=== PATIENT | male | born 1975 | race Caucasian/White ===

== ENCOUNTER 2020-12-03 16:11 | Inpatient (IN) | payer MEDICAID, SELFPAY ==
[2020-12-03] VITALS (28 sets, daily range): BP systolic 110–142; BP diastolic 66–86; PULSE 84–121; RESP 13–36; TEMP 36.5–37.3; O2SAT 82–98
--- NOTE | 2020-12-03 16:00 | RT.EKG_ITS ---
APPROVED REPORT Exam: Resting ECG Reason for Exam: DT's Patient Location: E HR:106 bpm ECG Measurements Heart Rate 106 AXIS AR 137 P 66 QRSd 80 QRS 61 QT 328 T 67 QTc 437 Conclusion Sinus tachycardia...rate> 99 Ventricular trigeminy...trigeminy string>6 w/ V complexes ST elev, probable normal early repol pattern...ST elevation, age<55. No STEMI. I have reviewed and interpreted ECG and agree with software generated interpretation.
--- NOTE | 2020-12-03 16:20 | W.ED.GENAD ---
Discharge Plan Disposition Patient Disposition: [facility] INPATIENT Condition: Fair Discharge Details Clinical Impression: Alcohol withdrawal Primary Care Provider: [facility] Provider: Radha Contreras Home Meds and New Rx's Prescriptions: No Action ibuprofen [IBU] 800 mg Tablet 800 mg PO TID PRNRF: 0 trazodone 150 mg Tablet 150 mg PO QHS RF: 0 Genvoya [phone] mg Tablet 1 tab PO DAILY RF: 0 testosterone enanthate 100 mg/0.5 mL Auto-Injector 250 mg SUBCUT QWEEK RF: 0 Medical Decision Making 1630 -- 45-year-old male with a history of HIV and chronic alcohol abuse with h/o DTs presents for symptoms of alcohol withdrawal in the last hour. Heart rate 110s. He appears diaphoretic, anxious and shaky. Will give 1 mg Ativan IV. Will check screening labs, start banana bag and give Ativan IV prn. 1745 -- Labs reviewed. Normal white blood cell count. Normal potassium of 4.4. Magnesium low at 1.6. Troponin negative. Alcohol level 112. Patient reassessed and he feels better but still somewhat shaky. Heart rate 110s. Will admit for alcohol withdrawal. Case discussed with hospitalist who accepts patient for admission. Medical Records Medical records reviewed: Yes I reviewed the patient's medical records. Lab Data Lab results reviewed: Yes I reviewed the patient's lab results. Labs: Laboratory Tests Range/Units 12/03/20 12/03/20 12/03/20 16:20 16:20 16:20 WBC (4.4-10.8) 10^3/uL 7.41 RBC (4.36-5.78) 10^6/uL 4.85 Hgb (13.5-17.5) g/dL 16.3 Hct (40.0-50.0) % 46.1 MCV (80-95) fL 95.1 H MCH (27.0-33.0) pg 33.6 H MCHC (32.0-36.0) % 35.4 RDW (11.8-14.1) % 14.6 H Plt Count (130-400) 10^3/uL 133 MPV (8.0-11.0) fL 10.2 Immature Gran % 0.3 Neutrophils % 65.3 Lymphocytes % 26.2 Monocytes % 6.2 Eosinophils % 1.6 Basophils % 0.4 Nucleated RBC % % 0 Absolute Neutrophils (1.2-6.7) 10^3/uL 4.84 Absolute Lymphocytes (1.2-3.4) 10^3/uL 1.94 Absolute Monocytes (0.1-0.8) 10^3/uL 0.46 Absolute Eosinophils (0.0-0.7) 10^3/uL 0.12 Absolute Basophils (0.0-0.2) 10^3/uL 0.03 PT (9.3-11.0) sec 10.1 INR (0.9-1.1) 1.0 APTT (21.0-27.5) sec 23.2 Sodium (136-145) mmol/L 142 Potassium (3.5-5.1) mmol/L 4.4 Chloride (98-107) mmol/L 103 Carbon Dioxide (21.0-32.0) mmol/L 25.2 Anion Gap (3-11) mmol/L 13.8 H BUN (7-18) mg/dL 15 Creatinine (0.70-1.30) mg/dL 1.0 Estimated GFR/1.73 m2 (mL/min/1.73m2) >= 60.00 Glucose (74-106) mg/dL 75 Calcium (8.5-10.1) mg/dL 8.9 Magnesium (1.8-2.4) mg/dL 1.6 L Total Bilirubin (0.2-1.0) mg/dL 0.8 AST (15-37) U/L 57 H ALT (16-63) U/L 39 Alkaline Phosphatase (46-116) U/L 79 Troponin I (<0.06) ng/mL < 0.05 Total Protein (6.4-8.2) g/dL 8.4 H Albumin (3.4-5.0) g/dL 4.2 Ethyl Alcohol (<3) mg/dL 112.7 COVID-19 Source Range/Units 12/03/ 18:30 WBC (4.4-10.8) 10^3/uL RBC (4.36-5.78) 10^6/uL Hgb (13.5-17.5) g/dL Hct (40.0-50.0) % MCV (80-95) fL MCH (27.0-33.0) pg MCHC (32.0-36.0) % RDW (11.8-14.1) % Plt Count (130-400) 10^3/uL MPV (8.0-11.0) fL Immature Gran % Neutrophils % Lymphocytes % Monocytes % Eosinophils % Basophils % Nucleated RBC % % Absolute Neutrophils (1.2-6.7) 10^3/uL Absolute Lymphocytes (1.2-3.4) 10^3/uL Absolute Monocytes (0.1-0.8) 10^3/uL Absolute Eosinophils (0.0-0.7) 10^3/uL Absolute Basophils (0.0-0.2) 10^3/uL PT (9.3-11.0) sec INR (0.9-1.1) APTT (21.0-27.5) sec Sodium (136-145) mmol/L Potassium (3.5-5.1) mmol/L Chloride (98-107) mmol/L Carbon Dioxide (21.0-32.0) mmol/L Anion Gap (3-11) mmol/L BUN (7-18) mg/dL Creatinine (0.70-1.30) mg/dL Estimated GFR/1.73 m2 (mL/min/1.73m2) Glucose (74-106) mg/dL Calcium (8.5-10.1) mg/dL Magnesium (1.8-2.4) mg/dL Total Bilirubin (0.2-1.0) mg/dL AST (15-37) U/L ALT (16-63) U/L Alkaline Phosphatase (46-116) U/L Troponin I (<0.06) ng/mL Total Protein (6.4-8.2) g/dL Albumin (3.4-5.0) g/dL Ethyl Alcohol (<3) mg/dL COVID-19 Source Nasal/nares ECG Data Attestation: I personally reviewed and interpreted this ECG (s) as follows: Interpretation: rate of 106, sinus, PVCs. Potentially early repol in V2-V3. No obvious STEMI. HI 137. QRS 61. QTc 430 HPI General Mode of arrival: ambulatory. Date/Time Provider Initiated Documentation: 12/03/20 16:12. Limitations to Documentation: no limitations. Information obtained by: patient. HPI Narrative: Patient is a 45-year-old male with a history of HIV and chronic alcohol abuse who presents for symptoms of alcohol withdrawal in the last hour. Patient states he was scheduled to go to a detox facility today in [place] but was picked up by the [place] [facility] for an unrelated charge. Patient states he was not arrested but while he was being held at the correctional facility with repeat breathalyzer tests to ensure that his alcohol level goes down to 0, he began to feel symptoms of withdrawal. He states he feels shaky and jittery. He expressed concern to the correctional facility staff as he has had a history of alcohol withdrawal with seizures in the past. He states he drinks 3 large bottles of wine and 4-5 jaime's hard lemonade daily. He states his last drink was 2 AM last night. He denies any drug use. Related Data Home Medications Medication Instructions Recorded Confirmed sqjwgby-ijj-okqrf-tenof alafen 1 tab PO DAILY 12/03/20 12/03/20 [Genvoya] ibuprofen [IBU] 800 mg PO TID PRN 12/03/20 12/03/20 testosterone enanthate 250 mg SUBCUT QWEEK 12/03/20 12/03/20 trazodone 150 mg PO QHS 12/03/20 12/03/20 Allergies Allergy/AdvReac Type Severity Reaction Status Date / Time bee venom protein (honey bee) Allergy Severe Anaphylaxis Unverified 12/03/20 16:16 shellfish derived Allergy Severe Anaphylaxis Unverified 12/03/20 16:16 erythromycin base Allergy fever/vomit Unverified 12/03/20 16:16 ing Review of Systems All systems reviewed & are unremarkable except as noted in HPI and below Constitutional Constitutional: Reports as per HPI, Denies chills, Denies fever(s) and Reports other (shaky and jittery feeling like I'm detoxing) Eyes Eyes: Denies blurry vision ENT Ears, Nose, Mouth, and Throat: Denies dizziness, Denies sore throat and Denies throat swelling Cardiovascular Cardiovascular: Denies chest pain and Denies dyspnea Respiratory Respiratory: Denies cough and Denies dyspnea Gastrointestinal Gastrointestinal: Denies abdominal pain, Denies diarrhea and Denies vomiting Genitourinary Genitourinary: Denies hematuria and Denies dysuria Musculoskeletal Musculoskeletal: Denies back pain and Denies numbness Integumentary/Breasts Skin/Breast: Denies lesions and Denies rash Neurologic Neurologic: Denies dizziness, Denies localized weakness and Denies numbness Allergic/Immunologic Allergic/Immunologic: Denies throat swelling [facility] Medical History Alcohol abuse Alcohol withdrawal syndrome with complication h/o DTs HIV (human immunodeficiency virus infection) Surgical History History of appendectomy Hx of bilateral hip replacements Social History Smoking/Tobacco Use Status: Current every day Smoking risk assessment performed?: Yes Alcohol Intake: current Alcohol Intake frequency: 3 or more drinks per day Alcohol type: wine and hard liquor Drug use: Never Details: drinks 2-3 magnums of wine and 5 bottles of mikes hard lemonade daily Exam Const General: cooperative, no acute distress and diaphoretic Orientation: alert, awake and oriented x3 HENMT Head: normal to inspection Face and sinus: normal facial exam Eyes General: appearance normal, both eyes and all related structures Pupils: PERRL EOM: EOM intact bilaterally Neck Neck: normal visual inspection and No submandibular swelling Lymphatic: no lymphadenopathy noted Chest Chest: normal inspection of the chest and no tenderness Resp Effort & Inspection: normal respiratory effort and able to speak in complete sentences Auscultation: clear to auscultation bilaterally Cardio Rate: tachycardic Rhythm: regular rhythm GI Inspection: normal to inspection Palpation: soft, not firm, not rigid and nontender Auscultation: normal bowel sounds Skin General skin exam: no rashes or lesions noted Neuro General: patient alert, patient awake, patient oriented x3, moves all extremities, no meningeal signs and no focal motor deficits Cognition: normal cognition Speech: speech normal Motor: muscle tone normal throughout Sensory Exam: no sensory deficits noted Extrem General: normal to inspection, full ROM, capillary refill normal, no calf tenderness bilaterally and no edema Psych Appearance: grossly normal Mental Status: mental status grossly normal Speech and Movement: speech and movement normal Affect: normal affect
[2020-12-03] MEDS: Normal Saline 1,000 ML 1000 ML IV (16:30)
[2020-12-03] MEDS: LORazepam 2 MG/ML VIAL (16:31)
[2020-12-03] MEDS: LORazepam 2 MG/ML VIAL 1 MG IVP (16:38)
[2020-12-03 16:52] LABS: Abs Immature Grans 0.02 10^3/uL (0.0-0.06); Absolute Basophil Count 0.03 10^3/uL (0.0-0.2); Absolute Eosinophil Count 0.12 10^3/uL (0.0-0.7); Absolute Lymphocyte Count 1.94 10^3/uL (1.2-3.4); Absolute Monocyte Count 0.46 10^3/uL (0.1-0.8); Absolute Neutrophil Count 4.84 10^3/uL (1.2-6.7); Basophils % 0.4; Eosinophils % 1.6; HCT 46.1 % (40.0-50.0); HGB 16.3 g/dL (13.5-17.5); Immature Grans % 0.3; Lymphocytes % 26.2; MCH 33.6 pg (27.0-33.0); MCHC 35.4 % (32.0-36.0); MCV 95.1 fL (80-95); MPV 10.2 fL (8.0-11.0); Monocytes % 6.2; Neutrophils % 65.3; Nucleated RBC 0 %; Platelet Count 133 10^3/uL (130-400); RBC 4.85 10^6/uL (4.36-5.78); RDW 14.6 % (11.8-14.1); RDW-SD 50.4 fL; WBC 7.41 10^3/uL (4.4-10.8)
[2020-12-03] MEDS: Folic Acid 50 MG/10 ML VIAL (17:04)
[2020-12-03 17:07] LABS: PTT Activated 23.2 sec (21.0-27.5); Prothrombin Time 10.1 sec (9.3-11.0)
[2020-12-03] MEDS: MAGNESIUM SULFATE 8.12 MEQ, MULTIVITAMIN 10 ML, THIAMINE 100 MG, FOLIC ACID 1 MG in Nor... 168.867 MG IV (17:08)
[2020-12-03] MEDS: Thiamine 200 MG/2 ML VIAL (17:09)
[2020-12-03 17:11] LABS: ALT 39 U/L (16-63); AST 57 U/L (15-37); Albumin 4.2 g/dL (3.4-5.0); Alkaline Phosphatase 79 U/L (46-116); Anion Gap 13.8 mmol/L (3-11); BUN 15 mg/dL (7-18); Bilirubin, Total 0.8 mg/dL (0.2-1.0); CO2 25.2 mmol/L (21.0-32.0); Calcium 8.9 mg/dL (8.5-10.1); Chloride 103 mmol/L (98-107); ETHANOL BLOOD 112.7 mg/dL (<3); Glucose 75 mg/dL (74-106); Magnesium 1.6 mg/dL (1.8-2.4); Potassium 4.4 mmol/L (3.5-5.1); Sodium 142 mmol/L (136-145); Total Protein 8.4 g/dL (6.4-8.2); Troponin I < 0.05 ng/mL (<0.06)
--- NOTE | 2020-12-03 18:04 | HPE_ITS ---
Date of service: 12/03/20 Time of Service: 18:05 Assessment and Plan Assessment and plan (1) Alcohol withdrawal: Status: Acute Assessment and plan: Early alcoholn withdrawal, responding well to benzos. Will place on scheduled benzos along with CIWA protocol. Will also give single dose beta luis. Usual meds as is otherwise except will make the Trazadone hs prn as may not need with benzos on board. History of Present Illness History of Present Illness Chief Complaint: alcohol withdrawal Narrative: 45 male HIV+, h/o alcohol abuse, h/o full spectrum of withdrawal, including tremors, seizures and prosper DTs. Last drink approx 16 hour [employer]. Was picked up earlier today by police as incapacitated person, housed in group home. While there began experiencing tremors and was sent here for further eval. In ER patient was felt o be exhibiting signs of withdrawal, with tremors and hyperdynamic state. Lab s of note for Mag 1.6, AST 57, EtOH 112. Given banana bag and Ativan 3 mg IV in divided doses. States he feels much better. Due to h/o serious w/d issues he is admitted for further management. Review of Systems All systems reviewed & are unremarkable except as noted in HPI and below PFSH Medical History Alcohol abuse Alcohol withdrawal syndrome with complication h/o DTs HIV (human immunodeficiency virus infection) Surgical History History of appendectomy Hx of bilateral hip replacements Social History Smoking/Tobacco Use Status: Current every day Smoking risk assessment performed?: Yes Alcohol Intake: current Alcohol Intake frequency: 3 or more drinks per day Alcohol type: wine and hard liquor Drug use: Never Details: drinks 2-3 magnums of wine and 5 bottles of mikes hard cider daily Meds Allergies and Home Medications Allergies Allergy/AdvReac Type Severity Reaction Status Date / Time bee venom protein (honey bee) Allergy Severe Anaphylaxis Unverified 12/03/20 16:16 shellfish derived Allergy Severe Anaphylaxis Unverified 12/03/20 16:16 erythromycin base Allergy fever/vomit Unverified 12/03/20 16:16 ing Home Medications Medication Instructions Recorded Confirmed Type fzobwax-aea-fzujy-tenof alafen 1 tab PO DAILY 12/03/20 12/03/20 History [Genvoya] ibuprofen [IBU] 800 mg PO TID PRN 12/03/20 12/03/20 History testosterone enanthate 250 mg SUBCUT QWEEK 12/03/20 12/03/20 History trazodone 150 mg PO QHS 12/03/20 12/03/20 History Exam Narrative Exam Narrative: 127/81, 108, 36.5, 23, 96% RA. NAD, eating [employer]. HEENT atraumatic, anicteric; neck supple; lungs clear, heart tachy/regular; abdomen soft and NT; extremities w/o edema; neuro mild resting tremor, Ox3, lucid, nonfocal Results Labs Result diagrams: 12/03/20 16:20 12/03/20 16:20 Labs: Laboratory Results - last 24 hr 12/03/20 12/03/20 12/03/20 16:20 16:20 16:20 WBC 7.41 RBC 4.85 Hgb 16.3 Hct 46.1 MCV 95.1 H MCH 33.6 H MCHC 35.4 RDW 14.6 H Plt Count 133 MPV 10.2 Immature Gran % 0.3 Neutrophils % 65.3 Lymphocytes % 26.2 Monocytes % 6.2 Eosinophils % 1.6 Basophils % 0.4 Nucleated RBC % 0 Absolute Neutrophils 4.84 Absolute Lymphocytes 1.94 Absolute Monocytes 0.46 Absolute Eosinophils 0.12 Absolute Basophils 0.03 PT 10.1 INR 1.0 APTT 23.2 Sodium 142 Potassium 4.4 Chloride 103 Carbon Dioxide 25.2 Anion Gap 13.8 H BUN 15 Creatinine 1.0 Estimated GFR/1.73 m2 >= 60.00 Glucose 75 Calcium 8.9 Magnesium 1.6 L Total Bilirubin 0.8 AST 57 H ALT 39 Alkaline Phosphatase 79 Troponin I < 0.05 Total Protein 8.4 H Albumin 4.2 Ethyl Alcohol 112.7 Last Vital Signs Temp 36.5 C 12/03/20 16:19 Pulse 108 H 12/03/20 17:46 Resp 23 12/03/20 17:46 BP 127/81 12/03/20 17:46 Pulse Ox 96 12/03/20 17:46 COVID-19 Screening Have you, or household traveled for leisure in last 14 days?: No Had IN PERSON contact w/suspected or confirmed C-19 person: No
[2020-12-03 18:50] LABS: Source Nasal/Nares
[2020-12-03] MEDS: chlordiazePOXIDE 25 MG CAP PO (20:09)
[2020-12-03] MEDS: LORazepam 1 MG TAB PO/SL ×2 (20:09→22:59)
[2020-12-03] MEDS: Metoprolol 25 MG TAB PO (20:10)
[2020-12-03 21:50] LABS: COVID-19 PCR Negative (Negative)
--- NOTE | 2020-12-03 22:49 | NUR.NOTE ---
Patient disconnect his own IV and left it into a cup on his side table.
[2020-12-03] MEDS: traZODone 50 MG TAB 150 MG PO (22:58)
[2020-12-04] VITALS (39 sets, daily range): BP systolic 105–135; BP diastolic 52–102; PULSE 51–107; RESP 10–25; TEMP 36; O2SAT 95–99
[2020-12-04] MEDS: diphenhydrAMINE 25 MG CAP 50 MG PO ×2 (01:30→21:41)
[2020-12-04] MEDS: chlordiazePOXIDE 25 MG CAP PO ×2 (01:31→08:28)
[2020-12-04] MEDS: LORazepam 1 MG TAB PO/SL ×2 (01:31→10:00)
[2020-12-04] MEDS: THIAMINE 100 MG in Normal Saline 100 ML 200 MG IVPB (11:59)
[2020-12-04] MEDS: PHENobarbital 130 MG/ML VIAL IVP ×3 (13:00→21:41)
--- NOTE | 2020-12-04 16:00 | W.PM.PROGNOT ---
Date of Service Date of service: 12/04/20 Time of Service: 16:00 Assessment and Plan Assessment and plan (1) Alcohol withdrawal: Status: Acute Assessment and plan: with h/o EtOH w/d seizures. Transitioned to phenobarbital. Continue to monitor in the ICU. D/c librium/ativan. Continue thiamine/MVI/folate (2) HIV (human immunodeficiency virus infection): Status: Chronic Assessment and plan: Hold HAART - the patient is on vacation from it at this time and it would interract with phenobarbital. (3) Hypomagnesemia: Status: Acute Assessment and plan: Repleted. Recheck in am (4) Macrocytosis: Status: Acute Assessment and plan: Check B12/folate levels (5) DVT prophylaxis: Status: Acute Assessment and plan: lovenox sc (6) Discharge planning issues: Status: Acute Assessment and plan: Full code Transferred to the ICU Total Critical Care Time 40 minutes Subjective Subjective Interval history since last seen: Was noted to be hallucinating this morning with CIWA scores of 19. For this, he was transferred to the ICU. Since he has been on vacation from his HAART x 1 week, he was initiated on phenobarbital and now his sx seem more controlled. He does have a h/o EtOH withdrawal seizures. He was seen twice today. This morning, he was endorsing feeling anxious, tremulous, and having hallucinations. He was surprised to find out that alcohol withdrawal can be that serious. This afternoon, he was seen while talking on the phone, not tremulous, mildly anxious, but appropriate and coherent. His hallucinations have stopped. Exam Narrative Exam Narrative: General: Pleasant middle-aged male, who was tremulous and anxious this morning and is significantly more comfortable this afternoon HEENT: EOMI, MMM Heart: RRR - NSR on monitor Lungs: nonlabored breathing Abdomen: soft, nondistended Extremities:no edema Objective Last Vital Signs Temp 36.0 C L 12/04/20 14:29 Pulse 75 12/04/20 07:40 Resp 19 12/04/20 14:29 BP 111/64 12/04/20 14:29 Pulse Ox 97 12/04/20 14:29 Laboratory Results - last 24 hr 12/03/20 12/03/20 12/03/20 16:20 16:20 16:20 WBC 7.41 RBC 4.85 Hgb 16.3 Hct 46.1 MCV 95.1 H MCH 33.6 H MCHC 35.4 RDW 14.6 H Plt Count 133 MPV 10.2 Immature Gran % 0.3 Neutrophils % 65.3 Lymphocytes % 26.2 Monocytes % 6.2 Eosinophils % 1.6 Basophils % 0.4 Nucleated RBC % 0 Absolute Neutrophils 4.84 Absolute Lymphocytes 1.94 Absolute Monocytes 0.46 Absolute Eosinophils 0.12 Absolute Basophils 0.03 PT 10.1 INR 1.0 APTT 23.2 Sodium 142 Potassium 4.4 Chloride 103 Carbon Dioxide 25.2 Anion Gap 13.8 H BUN 15 Creatinine 1.0 Estimated GFR/1.73 m2 >= 60.00 Glucose 75 Calcium 8.9 Magnesium 1.6 L Total Bilirubin 0.8 AST 57 H ALT 39 Alkaline Phosphatase 79 Troponin I < 0.05 Total Protein 8.4 H Albumin 4.2 Ethyl Alcohol 112.7 COVID-19 Source SARS-CoV-2 (PCR) 12/03/20 18:30 WBC RBC Hgb Hct MCV MCH MCHC RDW Plt Count MPV Immature Gran % Neutrophils % Lymphocytes % Monocytes % Eosinophils % Basophils % Nucleated RBC % Absolute Neutrophils Absolute Lymphocytes Absolute Monocytes Absolute Eosinophils Absolute Basophils PT INR APTT Sodium Potassium Chloride Carbon Dioxide Anion Gap BUN Creatinine Estimated GFR/1.73 m2 Glucose Calcium Magnesium Total Bilirubin AST ALT Alkaline Phosphatase Troponin I Total Protein Albumin Ethyl Alcohol COVID-19 Source Nasal/nares SARS-CoV-2 (PCR) Negative
--- NOTE | 2020-12-04 16:33 | INITIAL_ITS ---
- If Service Date Differs Date of service: 12/04/20 Time of Service: 16:33 Care Management Initial Assess REASON FOR HOSPITALIZATION:: ETOH withdrawal. PAST MEDICAL HISTORY/PAST SURGICAL HISTORY:: Medical History: Alcohol abuse, Alcohol withdrawal syndrome with complication - h/o DTs, and HIV (human immunodeficiency virus infection). Surgical History: History of appendectomy and Hx of bilateral hip replacements. PREVIOUS FUNCTIONAL STATUS/SOCIAL/FAMILY SUPPORTS:: Dustin, who prefers to be called Edmond, is a 45 year old male who resides in [place] with his partner of 7 years. 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 Edmond is originally from [place], [place], where the couple have a second home. Edmond is independent at baseline. CURRENT FUNCTIONAL STATUS:: Edmond is sitting up in bed when CM comes to meet with him. He is pleasant and easily engages in conversation. He shares that he has struggled with alcohol for many years. He has had several periods of sobriety but states that Covid made it difficult to remain sober. CM will continue to follow. ADVANCE DIRECTIVES:: None on file. Has patient been provided with info about the portal/API?: No Did the patient sign up for the portal?: No CODE STATUS:: Full Code INSURANCE COVERAGE / FINANCIAL ISSUES:: Medicaid. CURRENT HOME/COMMUNITY SERVICES/EQUIPMENT:: Has a substance abuse counselor and dramatic coach through [facility]. PRIMARY CARE PHYSICIAN:: None locally. POTENTIAL DISCHARGE NEEDS:: Rehab and appointment with his substance abuse counselor and dramatic coach. PATIENT/FAMILY EDUCATION NEEDS:: Discharge instructions and follow up plan of care, including [facility] [employer]. ANTICIPATED BARRIERS TO DISCHARGE:: None. TRANSPORTATION:: Via [facility] coordinated by CM. PLAN:: Anticipate Edmond will be discharged with no new services when medically cleared by provider. He will follow up with his PCP, community providers, and discharge plan of care as directed. Transportation home will be provided by [facility], coordinated by CM when ready. CM will continue to follow.
[2020-12-04] MEDS: Normal Saline 1,000 ML 125 ML IV (17:40)
[2020-12-04] MEDS: Enoxaparin 40 MG/0.4 ML SYR SC (17:40)
[2020-12-04] MEDS: traZODone 50 MG TAB 150 MG PO (21:41)
[2020-12-05] VITALS (40 sets, daily range): BP systolic 54–122; BP diastolic 21–86; PULSE 53–134; RESP 10–22; TEMP 36.2–36.6; O2SAT 96–98
[2020-12-05] MEDS: Normal Saline 1,000 ML 125 ML IV ×3 (00:33→22:12)
[2020-12-05] MEDS: PHENobarbital 130 MG/ML VIAL IVP ×10 (04:24→23:58)
[2020-12-05] MEDS: diphenhydrAMINE 25 MG CAP 50 MG PO ×3 (04:24→23:58)
[2020-12-05 06:56] LABS: Abs Immature Grans 0.01 10^3/uL (0.0-0.06); Absolute Basophil Count 0.04 10^3/uL (0.0-0.2); Absolute Eosinophil Count 0.24 10^3/uL (0.0-0.7); Absolute Lymphocyte Count 1.98 10^3/uL (1.2-3.4); Absolute Monocyte Count 0.58 10^3/uL (0.1-0.8); Absolute Neutrophil Count 2.02 10^3/uL (1.2-6.7); Basophils % 0.8; Eosinophils % 4.9; HCT 39.2 % (40.0-50.0); HGB 13.7 g/dL (13.5-17.5); Immature Grans % 0.2; Lymphocytes % 40.7; MCH 33.2 pg (27.0-33.0); MCHC 34.9 % (32.0-36.0); MCV 94.9 fL (80-95); Monocytes % 11.9; Neutrophils % 41.5; Nucleated RBC 0 %; Platelet Count 101 10^3/uL (130-400); RBC 4.13 10^6/uL (4.36-5.78); RDW 13.5 % (11.8-14.1); RDW-SD 47.6 fL; WBC 4.87 10^3/uL (4.4-10.8)
[2020-12-05 07:39] LABS: Anion Gap 10.8 mmol/L (3-11); BUN 10 mg/dL (7-18); CO2 24.2 mmol/L (21.0-32.0); CREATININE 0.8 mg/dL (0.70-1.30); Chloride 102 mmol/L (98-107); Folate 9.8 ng/mL (8.6-20.0); Glucose 100 mg/dL (74-106); Magnesium 1.4 mg/dL (1.8-2.4); Potassium 3.7 mmol/L (3.5-5.1); Sodium 137 mmol/L (136-145); Vitamin B12 395 pg/mL (193-986)
--- NOTE | 2020-12-05 08:20 | W.PM.PROGNOT ---
Date of Service Date of service: 12/05/20 Time of Service: 12:40 Assessment and Plan Assessment and plan (1) Alcohol withdrawal: Status: Acute Assessment and plan: with h/o EtOH w/d seizures. Continue phenobarbital. Target RASS -1. Continue to monitor in the ICU. Continue thiamine/MVI/folate (2) HIV (human immunodeficiency virus infection): Status: Chronic Assessment and plan: Hold HAART - the patient is on vacation from it at this time and it would interract with phenobarbital. (3) Hypomagnesemia: Status: Acute Assessment and plan: Repleted. Recheck in am (4) Macrocytosis: Status: Acute Assessment and plan: Does have evidence of B12 deficiency - replete. (5) DVT prophylaxis: Status: Acute Assessment and plan: lovenox sc (6) Discharge planning issues: Status: Acute Assessment and plan: Full code Keep in ICU. Total Critical Care Time 40 minutes Subjective Subjective Interval history since last seen: CIWA score 19 this am at 0600. Got phenobarbital for it. Reports headache, sweating, nausea, tremors. Phenobarbital helps. Comfortable now. No seizures overnight. No hallucinations overnight. Steady on feet. Cooperative but gets anxious. Exam Narrative Exam Narrative: General: Pleasant middle-aged male, anxious, mildly tremulous, A&Ox3 HEENT: EOMI, MMM Heart: RRR - NSR on monitor Lungs: nonlabored breathing Abdomen: soft, nondistended Extremities:no edema Objective Last Vital Signs Temp 36.4 C L 12/05/20 04:00 Pulse 62 12/05/20 07:01 Resp 10 L 12/05/20 06:00 BP 98/65 L 12/05/20 07:01 Pulse Ox 96 12/05/20 07:01 Laboratory Results - last 24 hr 12/05/20 12/05/20 06:27 06:27 WBC 4.87 RBC 4.13 L Hgb 13.7 D Hct 39.2 L MCV 94.9 MCH 33.2 H MCHC 34.9 RDW 13.5 Plt Count 101 L MPV 10.0 Immature Gran % 0.2 Neutrophils % 41.5 Lymphocytes % 40.7 Monocytes % 11.9 Eosinophils % 4.9 Basophils % 0.8 Nucleated RBC % 0 Absolute Neutrophils 2.02 Absolute Lymphocytes 1.98 Absolute Monocytes 0.58 Absolute Eosinophils 0.24 Absolute Basophils 0.04 Sodium 137 Potassium 3.7 Chloride 102 Carbon Dioxide 24.2 Anion Gap 10.8 BUN 10 Creatinine 0.8 Estimated GFR/1.73 m2 >= 60.00 Glucose 100 Calcium 8.0 L Magnesium 1.4 L Vitamin B12 395 Folate 9.8
[2020-12-05] MEDS: Folic Acid 1 MG TAB PO (09:53)
[2020-12-05] MEDS: MAGNESIUM SULFATE 4 GM/100 ML BAG IVPB (09:53)
[2020-12-05] MEDS: Cyanocobalamin 500 MCG TAB 1000 MCG PO (09:53)
[2020-12-05] MEDS: Multivitamin TAB 1 TAB PO (09:53)
[2020-12-05] MEDS: Thiamine 100 MG TAB PO (09:54)
--- NOTE | 2020-12-05 10:42 | NUR.NOTE ---
PT currently has diarrhea and is back and forth to toilet. Currently very upset that he was incontinent of stool (One time) PT not connected to telemetry leads or O2 sensor right now (RN notified) PT said, Because I have to move so fast to get to the toilet so I don't do that in the bed again just take this shit off. PT is agitated and crying, currently on phone with alcohol therapist.
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
--- NOTE | 2020-12-05 15:34 | CHAPLAIN ---
I stopped in to see Edmond yesterday, but he had just been given some pain meds and wanted to wait and talk today. Today he spoke with his therapist on the phone. He was very teary telling her that he has been placed in a senior care cell in [place] before being released and then eventually transferred here for ICU level of care. Edmond had been drinking and his sought a restraining order a against [employer], which has since been removed. Today Edmond said things are looking better, somewhat. He hopes to reconnect with his AA sponsor and his development coach which have helped him maintain his sobriety in the past and he would like to go to a residential facility. Edmond told me about a near Experience that changed his outlook on dying. His therapist is due to visit in person this afternoon.
[2020-12-05] MEDS: Normal Saline Flush 10 ML SYR IVP ×4 (15:51→23:58)
[2020-12-05] MEDS: Enoxaparin 40 MG/0.4 ML SYR SC (17:51)
[2020-12-06] VITALS (38 sets, daily range): BP systolic 90–135; BP diastolic 52–89; PULSE 63–93; RESP 14–28; TEMP 35.5–36.5; O2SAT 95–99
[2020-12-06] MEDS: traZODone 50 MG TAB 150 MG PO ×2 (00:56→20:28)
[2020-12-06] MEDS: PHENobarbital 130 MG/ML VIAL IVP (05:22)
[2020-12-06] MEDS: Normal Saline 1,000 ML 125 ML IV ×3 (05:24→20:34)
[2020-12-06] MEDS: diphenhydrAMINE 25 MG CAP 50 MG PO ×2 (05:52→11:18)
[2020-12-06 06:47] LABS: Anion Gap 8.9 mmol/L (3-11); BUN 8 mg/dL (7-18); CO2 25.1 mmol/L (21.0-32.0); CREATININE 0.8 mg/dL (0.70-1.30); Calcium 7.8 mg/dL (8.5-10.1); Chloride 104 mmol/L (98-107); Glucose 117 mg/dL (74-106); Magnesium 1.6 mg/dL (1.8-2.4); Potassium 3.7 mmol/L (3.5-5.1); Sodium 138 mmol/L (136-145)
--- NOTE | 2020-12-06 08:16 | W.PM.PROGNOT ---
Date of Service Date of service: 12/06/20 Time of Service: 11:56 Assessment and Plan Assessment and plan (1) Alcohol withdrawal: Status: Acute Assessment and plan: with h/o EtOH w/d seizures. Maxed out on phenobarbital. Has adverse reaction to antipsychotics and refuses to take it. Does still have enough symptoms where I feel re-introduction of benzodiazepines is appropriate (for CIWA >8) in very conservative doses. Continue to monitor in the ICU. Continue thiamine/MVI/folate (2) HIV (human immunodeficiency virus infection): Status: Chronic Assessment and plan: Hold HAART - the patient is on vacation from it at this time and it would interract with phenobarbital. (3) Hypomagnesemia: Status: Acute Assessment and plan: Repleted. Recheck in am (4) Macrocytosis: Status: Acute Assessment and plan: Replete B12. (5) DVT prophylaxis: Status: Acute Assessment and plan: lovenox sc (6) Discharge planning issues: Status: Acute Assessment and plan: Full code Keep in ICU. Total Critical Care Time 45 minutes Subjective Subjective Interval history since last seen: received 3120 mg of phenobaribtal total. maxed out. CIWA 16, 21, 14 overnight. He is tremulous this morning but better after ativan. Exam Narrative Exam Narrative: General: Pleasant middle-aged male, anxious, not tremulous, A&Ox3 HEENT: EOMI, MMM Heart: RRR, no m/r/g Lungs: CTAB Abdomen: soft, nondistended Extremities: no edema BLE's Objective Last Vital Signs Temp 35.5 C L 12/06/20 04:20 Pulse 66 12/06/20 05:48 Resp 18 12/06/20 05:48 BP 105/64 12/06/20 05:48 Pulse Ox 99 12/06/20 05:53 Laboratory Results - last 24 hr 12/06/20 06:10 Sodium 138 Potassium 3.7 Chloride 104 Carbon Dioxide 25.1 Anion Gap 8.9 BUN 8 Creatinine 0.8 Estimated GFR/1.73 m2 >= 60.00 Glucose 117 H Calcium 7.8 L Magnesium 1.6 L
[2020-12-06] MEDS: MAGNESIUM SULFATE 2 GM/50 ML BAG IVPB (08:43)
[2020-12-06] MEDS: Cyanocobalamin 500 MCG TAB 1000 MCG PO (08:44)
[2020-12-06] MEDS: Folic Acid 1 MG TAB PO (08:44)
[2020-12-06] MEDS: Multivitamin TAB 1 TAB PO (08:44)
[2020-12-06] MEDS: Thiamine 100 MG TAB PO (08:44)
--- NOTE | 2020-12-06 08:45 | NUR.NOTE ---
This LEDGE MAN gave PT supplies to do AM care. PT is a set up and can do self care. PT knows to hit call perez when he is done so I can clean everything up. Linens were changed shortly before AM shift started and PT stated he does not want anymore clean sheets today unless needed. Nursing Note:
[2020-12-06] MEDS: Ibuprofen 800 MG TAB PO (09:41)
[2020-12-06] MEDS: Normal Saline Flush 10 ML SYR IVP ×2 (09:44→19:32)
[2020-12-06] MEDS: LORazepam 2 MG/ML VIAL 1 MG IVP ×5 (10:15→17:03)
--- NOTE | 2020-12-06 10:20 | PDOC.CMPRO ---
- If Service Date Differs Date of service: 12/06/20 Time of Service: 10:20 Care Management Progress Note S/O: Edmond was dozing when CM came to see him this afternoon. This morning he was busy with staff and CM was unable to meet with him. Edmond has been scoring quite high on the CIWA scale today. He received the maximum dose of phenobarbital overnight and needed to be changed to Lorazepam this morning . His early childhood teacher CIWA was 26 and each subsequent score today was between 19 and 24. RN asked CM not to wake Edmond at this time. A: Edmond (Ant) is a 45 year old man admitted on 12/03/20 with ETOH withdrawal P:Anticipate Edmond will be discharged with no new services when medically cleared by provider. He will follow up with his PCP, community providers, and discharge plan of care as directed. Transportation home will be provided by [facility], coordinated by CM when ready. CM will continue to follow. ------
[2020-12-06] MEDS: LORazepam 2 MG/ML VIAL 1 MG IM (10:45)
--- NOTE | 2020-12-06 15:09 | PHA.REVIEW ---
Pharmacy Admission Review - Admission Clinical Review (Last Updated 12/04/20 @ 16:11 by Laya Iglesias MD) Discharge planning issues (Acute) DVT prophylaxis (Acute) Macrocytosis (Acute) Hypomagnesemia (Acute) Alcohol withdrawal (Acute) bee venom protein (honey bee) Allergy (Severe, Unverified 12/03/20 16:16) Anaphylaxis shellfish derived Allergy (Severe, Unverified 12/03/20 16:16) Anaphylaxis erythromycin base Allergy (Unverified 12/03/20 16:16) fever/vomiting quetiapine Adverse Reaction (Unverified 12/06/20 10:06) Agitation Resuscitation Status Full Code Height 5 ft 11 in Weight 74.7 kg - Renal Dosing Renal Dosing: BUN 8 mg/dL (7-18) 12/06/20 06:10 Creatinine 0.8 mg/dL (0.70-1.30) 12/06/20 06:10 Medications needing adjustments: Reviewed (Crcl ~124 mL/min current meds okay) - Anticoagulation Anticoagulation: Hgb 13.7 g/dL (13.5-17.5) D 12/05/20 06:27 Hct 39.2 % (40.0-50.0) L 12/05/20 06:27 Plt Count 101 10^3/uL (130-400) L 12/05/20 06:27 INR 1.0 (0.9-1.1) 12/03/20 16:20 Creatinine 0.8 mg/dL (0.70-1.30) 12/06/20 06:10 DVT Prohphylaxis: Reviewed Medications: Enoxaparin - Opiate Usage Evaluate Pain Scale/Pains Meds: N/A - Relevant Labs Sodium 138 mmol/L (136-145) 12/06/20 06:10 Potassium 3.7 mmol/L (3.5-5.1) 12/06/20 06:10 Chloride 104 mmol/L (98-107) 12/06/20 06:10 Magnesium 1.6 mg/dL (1.8-2.4) L 12/06/20 06:10 Electrolytes, C-Reactive P, ESR: Reviewed (IV mag replacement ordered) - DM Control DM Control: Glucose 117 mg/dL (74-106) H 12/06/20 06:10 Insulin Dosing: N/A - Heart Failure/OR Heart Failure/OR: Troponin I < 0.05 ng/mL (<0.06) 12/03/20 16:20 EF%, UMM's, B-Blockers, Diuretics: Reviewed - BP Control BP Control: Blood Pressure 105/64 If elevated: N/A - Qtc Review If Elevated: N/A (QTc 437 on admission) - IV to PO Switch IV Medications: Reviewed - Home Meds Home Med List reviewed: Reviewed (Genvoya may increase the serum concentration of trazodone; consider using lower doses of trazodone and monitoring for increased side effects. Ibuprofen may enhance the nephrotoxic effect of tenofovir (in Genvoya); recommended to avoid concurrent use of tenofovir with high dose NSAIDs when possible.) Relevent Home Meds Not ordered & why?: Genvoya (pt on vacation from this per provider), testosterone - Current meds Current Medication Order Review: Reviewed (Provider aware of risks of lorazepam following phenobarbital use (conservative dosing ordered for CIWA over 8 per progress note as pt still actively withdrawing)) - Comments Comments/Follow Ups: Watch VS, mag, labs, and for med changes.
[2020-12-06 18:02] LABS: PHENOBARBITAL 62.3 ug/mL (15.0-40.0)
[2020-12-06] MEDS: Enoxaparin 40 MG/0.4 ML SYR SC (19:30)
[2020-12-06] MEDS: LORazepam 2 MG/ML VIAL IVP (19:32)
[2020-12-06] MEDS: diazePAM 10 MG/2 ML SYR IVP ×2 (21:08→23:23)
[2020-12-07] VITALS (27 sets, daily range): BP systolic 103–131; BP diastolic 58–76; PULSE 60–83; RESP 14–23; TEMP 35–36.4; O2SAT 93–100
[2020-12-07] MEDS: diazePAM 10 MG/2 ML SYR IVP (00:04)
[2020-12-07] MEDS: diphenhydrAMINE 25 MG CAP 50 MG PO ×4 (05:21→23:30)
[2020-12-07 07:11] LABS: BUN 8 mg/dL (7-18); CREATININE 0.9 mg/dL (0.70-1.30); Calcium 8.3 mg/dL (8.5-10.1); Chloride 100 mmol/L (98-107); Glucose 105 mg/dL (74-106); Magnesium 1.4 mg/dL (1.8-2.4); Potassium 3.7 mmol/L (3.5-5.1); Sodium 137 mmol/L (136-145)
--- NOTE | 2020-12-07 08:16 | W.PM.PROGNOT ---
Date of Service Date of service: 12/07/20 Time of Service: 12:10 Assessment and Plan Assessment and plan (1) Alcohol withdrawal: Status: Acute Assessment and plan: with h/o EtOH w/d seizures. Maxed out on phenobarbital. Has adverse reaction to antipsychotics and refuses to take them. Continue prn benzos. Continue to monitor in the ICU. Continue thiamine/MVI/folate (2) HIV (human immunodeficiency virus infection): Status: Chronic Assessment and plan: Hold HAART - the patient is on vacation from it at this time and it would interract with phenobarbital. (3) Hypomagnesemia: Status: Acute Assessment and plan: Repleted. Recheck in am (4) Macrocytosis: Status: Acute Assessment and plan: Replete B12. (5) DVT prophylaxis: Status: Acute Assessment and plan: lovenox sc (6) Discharge planning issues: Status: Acute Assessment and plan: Full code Keep in ICU. Total Critical Care Time 35 minutes Subjective Subjective Interval history since last seen: Patient is asleep at time of my visit and I chose not to wake him up because he did not sleep last night. Rough night - 10 mg valium and 4 mg of ativan overnight. CIWA scores: 12, 7, 4, 7, 13 this am. Received 4 mg of PO ativan for that. Walked around the unit after breakfast. Sleeping now. Arousable. Snoring. Not hypoxic. Ripping out IVs last night and getting a little aggressive (raised a fist at nurse, but did not hurt anyone). Exam Narrative Exam Narrative: General: Pleasant middle-aged male, asleep, no evidence of apnea or respiratory depression HEENT: eyes closed, MMM Heart: RRR on monitor Lungs: nonlabored breathing Abdomen: nondistended Extremities: no edema BLE's Objective Last Vital Signs Temp 36.1 C L 12/07/20 04:20 Pulse 68 12/07/20 04:30 Resp 19 12/07/20 04:30 BP 103/58 L 12/07/20 04:30 Pulse Ox 96 12/07/20 04:30 Laboratory Results - last 24 hr 12/06/20 12/07/20 06:10 06:06 Sodium 137 Potassium 3.7 Chloride 100 Carbon Dioxide 26.0 Anion Gap 11.0 BUN 8 Creatinine 0.9 Estimated GFR/1.73 m2 >= 60.00 Glucose 105 Calcium 8.3 L Magnesium 1.4 L Phenobarbital 62.3 H*
[2020-12-07] MEDS: Multivitamin TAB 1 TAB PO (10:12)
[2020-12-07] MEDS: Thiamine 100 MG TAB PO (10:12)
[2020-12-07] MEDS: Magnesium Chloride 64 MG TABCR PO ×2 (10:12→20:49)
[2020-12-07] MEDS: Folic Acid 1 MG TAB PO (10:12)
[2020-12-07] MEDS: Cyanocobalamin 500 MCG TAB 1000 MCG PO (10:12)
[2020-12-07] MEDS: LORazepam 1 MG TAB PO/SL (10:13)
[2020-12-07] MEDS: MAGNESIUM SULFATE 4 GM/100 ML BAG IVPB (10:24)
--- NOTE | 2020-12-07 10:44 | PDOC.CMPRO ---
- If Service Date Differs Date of service: 12/07/20 Time of Service: 10:44 Care Management Progress Note S/O: Edmond was lying in bed asleep when CM came to meet with him. His nurse requested that he not be disturbed as he was again agitated and confused this morning. He scored 13 on the CIWA scale and required medication. Last night his scores were high as well and he required 10 mg of Valium and 4mg of Ativan overnight. This afternoon Edmond woke up and was requesting to be discharged. Dr. Iglesias determined that he is not ready and recommended that he stay one more night. ANGELA was asked to see him again and was able to convince him to stay tonight and will coordinate transportation with [facility] for him in the morning. A: Edmond (Ant) is a 45 year old man admitted on 12/03/20 with ETOH withdrawal P:Anticipate Edmond will be discharged with no new services when medically cleared by provider. He will follow up with his PCP, community providers, and discharge plan of care as directed. Transportation home will be provided by [facility], coordinated by ANGELA when ready. CM will continue to follow.
[2020-12-07] MEDS: traZODone 50 MG TAB 150 MG PO (23:30)
[2020-12-08 04:08] VITALS: RESP 21; TEMP 36.6; O2SAT 97
[2020-12-08 06:55] VITALS: BP 119/61; PULSE 56; PULSE 59
[2020-12-08 07:30] LABS: Anion Gap 7.2 mmol/L (3-11); BUN 13 mg/dL (7-18); CO2 29.8 mmol/L (21.0-32.0); CREATININE 0.9 mg/dL (0.70-1.30); Calcium 8.9 mg/dL (8.5-10.1); Chloride 99 mmol/L (98-107); Glucose 81 mg/dL (74-106); Potassium 3.7 mmol/L (3.5-5.1); Sodium 136 mmol/L (136-145)
[2020-12-08 07:46] LABS: Magnesium 1.5 mg/dL (1.8-2.4)
--- NOTE | 2020-12-08 08:29 | W.PM.PROGNOT ---
Subjective Subjective Interval history since last seen: CIWAs 0. Wants to go home. Rash L forearm. Objective Last Vital Signs Temp 36.6 C 12/08/20 04:08 Pulse 56 L 12/08/20 06:55 Resp 21 12/08/20 04:08 BP 119/61 12/08/20 06:55 Pulse Ox 97 12/08/20 04:08 Laboratory Results - last 24 hr 12/08/20 06:10 Sodium 136 Potassium 3.7 Chloride 99 Carbon Dioxide 29.8 Anion Gap 7.2 BUN 13 Creatinine 0.9 Estimated GFR/1.73 m2 >= 60.00 Glucose 81 Calcium 8.9 Magnesium 1.5 L
[2020-12-08] MEDS: MAGNESIUM SULFATE 4 GM/100 ML BAG IVPB (08:39)
[2020-12-08] MEDS: Cyanocobalamin 500 MCG TAB 1000 MCG PO (08:40)
[2020-12-08] MEDS: Magnesium Chloride 64 MG TABCR 128 MG PO (08:40)
[2020-12-08] MEDS: Thiamine 100 MG TAB PO (08:40)
[2020-12-08] MEDS: Multivitamin TAB 1 TAB PO (08:40)
[2020-12-08] MEDS: Folic Acid 1 MG TAB PO (08:40)
[2020-12-08 08:49] VITALS: BP 108/74; PULSE 84; PULSE 88
--- NOTE | 2020-12-08 09:40 | PT.INIE ---
Date of service: 12/08/20 Time of Service: 09:40 PT Notes Visit Reasons: ETOH Withdrawl Physical Therapy Inpatient Initial Evaluation Date: 12/08/2020 Referring Doctor: Laya Iglesias MD PT Orders: PT CONSULT: Limited ability Precautions: Fall. Standard. Activity as tolerated. Patient Profile/Admitting Diagnosis: 45-year-old male who presented to the ED on 12/03/2020 with diagnosis of ETOH withrawal. PMHX: Medical History Alcohol abuse Alcohol withdrawal syndrome with complication h/o DTs HIV (human immunodeficiency virus infection) Surgical History History of appendectomy Hx of bilateral hip replacements Social History/Home Situation: Independent with all aspects of ADLs prior to admission. Equipment Owned/DME: None Subjective: Feels much better than he did on admission. Hopeful that he can go home today. Denies headache, chest pain, and dizziness throughout session. Objective: General Observation: Pleasant and compliant with today's consult. telemetry monitoring in place. Mental Status: Alert and oriented as to person, place, time, and purpose. Able to pay attention, focus, and respond appropriately. Pain: 0/10 ROM: Right Upper Extremity: Shoulder Flexion WFL. Shoulder abduction WFL. Shoulder ER/IR WFL. Elbow flexion WFL. Forearm pronation/supination WFL. Wrist flexion WFL. Opening and closing of hand WFL. Left Upper Extremity: Shoulder Flexion WFL. Shoulder abduction WFL. Shoulder ER/IR WFL. Elbow flexion WFL. Forearm pronation/supination WFL. Wrist flexion WFL. Opening and closing of hand WFL. Right Lower Extremity: Hip flexion WFL. Hip abduction WFL. Hip ER/IR WFL. Knee flexion WFL. Knee extension. Ankle dorsiflexion/eversion WFL. Ankle plantarflexion/inversion WFL. Left Lower Extremity: Hip flexion WFL. Hip abduction WFL. Hip ER/IR WFL. Knee flexion WFL. Knee extension. Ankle dorsiflexion WFL. Ankle plantarflexion WFL. Strength: Right Upper Extremity: Shoulder flexors 5/5. Shoulder abductors 5/5. Shoulder ER 5/5. Shoulder IR 5/5. Forearm pronators 5/5. Forearm supinators 5/5. Elbow flexors 5/5. Elbow extensors 5/5. [employer] strong. Left Upper Extremity: Shoulder flexors 5/5. Shoulder abductors 5/5. Shoulder ER 5/5/ Shoulder IR 5/5. Forearm pronators 5/5. Forearm supinators 5/5. Elbow flexors 5/5. Elbow extensors 5/5. [employer] strong. Right Lower Extremity: Hip flexors 5/5. Hip abductors 5/5. Hip external rotators 5/5. Hip internal rotators 5/5. Knee flexors 5/5. Knee extensors 5/5. Ankle dorsiflexors/evertors 5/5. Ankle plantarflexors/invertors 5/5. Left Lower Extremity: Hip flexors 5/5. Hip abductors 5/5. Hip external rotators 5/5. HIp internal rotators 5/5. Knee flexors 5/5. Knee extensors 5/5. Ankle dorsiflexors/evertors 5/5. Ankle plantarflexors/invertors 5/5. Bed Mobility/Transfers: Rolling independent Supine to sit independent Sit to supine independent Sit to stand independent Stand to sit independent Bed to bedside commode independent Bedside commode to bed independent Bed to chair independent Chair to bed independent Gait: Distance of 1000 feet requiring distant supervision. No path deviation. Gait pattern unremarkable. Balance: Static Sitting: Normal Dynamic Sitting: Normal Static Standing: Fair Dynamic Standing: Fair Special Tests: Mobility Limitations Standardized Measure [facility] AM-PAC 6 clicks Basic Mobility Inpatient Short Form: Raw Score: 24 CMS Score: 0% deficit Informed Consent/Education: Patient instructed in purpose of PT consult and plan of care. Agreeable to proceed with established PT POC to achieve personal goals. Assessment: No impairment level findings nor functional deficits seen for this evaluation. No skilled services needed at this time. Patient may discharge without need for any assistive device once cleared by hospitalist. [place] 52042 low complexity based on the following: History: 45-year-old male with past medical history as indicated above Examination: Demonstrable impairment in strength, balance, and mobility level with underlying impairments and functional limitations as exhibited above as well as deficit score of 0% utilizing the [facility] Mobility Inpatient Short Form Presentation: Stable Decision Makin Low complexity Goals: N/A. PT evaluation and one treatment session only. Plan of Care/Treatment Plan: N/A. PT evaluation and one treatment session only. DISCHARGE RECOMMENDATIONS: Home when medically cleared by hospitalist. No equipment needs at this time. TREATMENT CODE/TIME: 50183 x 20 minutes, 56857 x 10 minutes beginning at 9:40 AM. Thank you for the opportunity to participate in the care of this patient. April Avelar PT, DPT, CLT [facility] [place], [place]
[2020-12-08 11:01] VITALS: BP 115/75; PULSE 83; O2SAT 98
--- NOTE | 2020-12-08 11:27 | DSE_ITS ---
Date of service: 12/08/20 Time of Service: 11:30 DS: Diagnosis Discharge Diagnosis (1) Alcohol withdrawal: Status: Acute (2) Hypomagnesemia: Status: Acute (3) HIV (human immunodeficiency virus infection): Status: Chronic (4) Macrocytosis: Status: Acute (5) B12 deficiency: Status: Acute (6) COVID-19 ruled out by laboratory testing: Status: Ruled-out Discharge Plan Disposition Patient Disposition: HOME Condition: Good Discharge Details Reason For Visit: ETOH Withdrawl Admit Date/Time: 12/06/20 08:45 Admit Provider: Kirit Rodriguez Attending Provider: Kirit Rodriguez [facility] Course: Mr Roth is a 45 year old male with PMHx of EtOH abuse, h/o alcohol withdrawal/DTs and EtOH withdrawal seizures as well as h/o tobacco abuse, HIV on HAART (Genvoya) who was admitted to [facility] on 12/03/20 and transferred to the ICU on 12/05/20 with alcohol withdrawal seizures. He was treated with phenobarbital but did require additional benzodiazepines for persistent DT symptoms. The patient's Genvoya had to be held due to being on phenobarbital. He did not require intubation and did not have seizures on this admission. We did treat his hypomagnesemia, B12 deficiency, and provided MVI/thiamine as well. He is medically stable for discharge home today. He can resume taking his Genvoya in the evening of December 22. Care for patient as well as completion of his discharge summary took 45 minutes on the day of discharge. Home Meds and New Rx's Prescriptions: New multivitamin [Multiple Vitamins] Tablet 1 tab PO DAILY Qty: 30 RF: 0 thiamine mononitrate (vit B1) [Vitamin B-1 (mononitrate)] 100 mg Tablet 100 mg PO DAILY Qty: 30 RF: 0 magnesium oxide 400 mg (241.3 mg magnesium) tablet 400 mg PO BID Qty: 60 RF: 0 cyanocobalamin (vitamin B-12) 1,000 mcg capsule 1,000 mcg PO DAILY Qty: 30 RF: 0 Continued ibuprofen [IBU] 800 mg Tablet 800 mg PO TID PRNRF: 0 trazodone 150 mg Tablet 150 mg PO QHS RF: 0 testosterone enanthate 100 mg/0.5 mL Auto-Injector 250 mg SUBCUT QWEEK RF: 0 Genvoya [phone] mg Tablet 1 tab PO DAILY Qty: 0 RF: 0 Discharge Instructions Instructions: How to Stop Smoking (DC), Acute Delirium (DC), Alcohol Withdrawal (DC) Additional Instructions: Resume taking Genvoya at night on 12/22/20. Return to the hospital with any fever, bleeding, chest pain, or shortness of breath. Follow up with your debt recovery officer for your alcohol abstinence plan. Do not drink and drive. You must stop smoking! Follow up with your PCP in 1-2 weeks. Activity:: Activity as Tolerated Equipment/Supplies:: No Equipment Needed Diet:: As Tolerated Discharge Orders Discharge Orders: Discharge Order (Routine); Ordered 12/08/20 Ordered By: Laya Iglesias DS: Summary Time Spent with Patient providing and/or coordinating discharge services: Greater than 30 minutes Status at Discharge Functional status at discharge: independent ambulation Overall status at discharge: patient is back to baseline Mental Status: mental status grossly normal Speech and Movement: speech and movement normal Mood: congruent mood Affect: anxious affect Exam Narrative Exam Narrative: General: Pleasant middle-aged male, Awake, not tremulous, does appear anxious HEENT: EOMI, MMM Heart: RRR, no m/r/g Lungs: CTAB Abdomen: soft, nontender, nondistended Extremities: no edema BLE's Psych Mental Status: mental status grossly normal Speech and Movement: speech and movement normal Mood: congruent mood Affect: anxious affect DS: Data Vitals/I&O Vitals and I&O: Vital Signs Temperature 36.6 C 12/08/20 04:08 Temperature Source Temporal Artery Scan 12/08/20 09:24 Pulse 83 12/08/20 11:01 Pulse Rhythm Irregular 12/04/20 08:38 Pulse 88 12/08/20 08:49 Respiratory Rate 21 12/08/20 04:08 Respiratory Effort Non-Labored 12/08/20 09:24 Respiratory Depth Normal 12/08/20 09:24 Respiratory Pattern Normal 12/08/20 09:24 Blood Pressure 115/75 12/08/20 11:01 Blood Pressure Mean 83 12/08/20 11:01 Blood Pressure Position Supine 12/08/20 09:24 Pulse Oximetry 98 12/08/20 11:01 Oxygen Delivery Method Room Air 12/08/20 09:24 Oxygen Flow Rate 0 12/08/20 09:24 Pain Level 0 12/08/20 09:24 Comment 12/03/20 19:26 Intake & Output 12/07/20 12/07/20 12/08/20 11:59 23:59 11:59 Intake Total 1950.833 / 2530.833 580 / 2530.833 320 / 320 Output Total 1100 / 2150 1050 / 2150 300 / 300 Balance 850.833 / 380.833 -470 / 380.833 Weight 78.3 kg 77.5 kg Intake: IV 270.833 / 270.833 Oral 1680 / 2260 580 / 2260 320 / 320 Output: Urine 1100 / 2150 1050 / 2150 300 / 300 Other: Urine Color Pale Yellow Yellow Yellow Urine Appearance Clear Clear Clear Urine Odor None Normal Normal Comment Voiding in urinal Stool Occult Blood Negative Stool Size Moderate Stool Characteristics Soft Soft Formed Voiding Methods Urinal Data Completed and Pending Labs on day of discharge: Labs from last 24 hours 12/08/20 06:10 Sodium 136 Potassium 3.7 Chloride 99 Carbon Dioxide 29.8 Anion Gap 7.2 BUN 13 Creatinine 0.9 Estimated GFR/1.73 m2 >= 60.00 Glucose 81 Calcium 8.9 Magnesium 1.5 L PFSH Medical History Alcohol abuse Alcohol withdrawal syndrome with complication h/o DTs HIV (human immunodeficiency virus infection) Surgical History History of appendectomy Hx of bilateral hip replacements Social History Smoking/Tobacco Use Status: Current every day Smoking risk assessment performed?: Yes Alcohol Intake: current Alcohol Intake frequency: 3 or more drinks per day Alcohol type: wine and hard liquor Drug use: Never Details: drinks 2-3 magnums of wine and 5 bottles of mikes hard lemonade daily
--- NOTE | 2020-12-08 18:26 | CMDISCH_ITS ---
- If Service Date Differs Date of service: 12/08/20 Time of Service: 18:26 LACE Index Scoring Tool - Questions: Length of Stay (in days): 2 Acuity (Admit via E.D.?): Yes E.D. Visits: 1 - Answers: Total Score: 6 Risk of Readmission: Low Risk Care Management Discharge Reason for Hospitalization: ETOH withdrawal. Discharge Plan: Edmond will be discharged home with no new services. He will follow up with his PCP, community providers, and discharge plan of care as directed. Transportation home will be provided by [facility], coordinated by CM. Patient/Family Education Needs: Discharge instructions and follow up plan of care, including Ask Me Three. - MH Services (Omit if N/A) Current MH Services: Other Referred to Internal [facility] (ED embedded) rn case manager?: No
== END 2020-12-08 13:30 | disposition home or self-care (01) | DRG 897 ==
LOC: ER 18:30 → MS 19:06 → ICU 12-04 09:12
PROVIDERS: Internal Medicine; Admitting Provider General Practice; Emergency Provider Physician Assistant; Visit Provider General Practice
DX: F10.129 Alcohol abuse with intoxication, unspecified (principal); B20 Human immunodeficiency virus [HIV] disease; G40.89 Other seizures; E83.42 Hypomagnesemia; E53.8 Deficiency of other specified B group vitamins; Z20.822 Contact with and (suspected) exposure to COVID-19; F17.210 Nicotine dependence, cigarettes, uncomplicated
CPT/HCPCS: 36415; 80048; 80053; 87635; 93005; 96361; 96365; 96366; 96375; 97161; 97530; 99285; J1650; 80184; 80320; 82607; 82746; 83735; 84484; 85025; 85610; 85730; 93010; 99219; 99239; 99291; G0378; J2060; J2560; J3360; J3475